=== PATIENT | male | born 2000 | race Caucasian/White ===

== ENCOUNTER 2024-09-09 11:34 | Emergency (ER) | payer OTHER ==
[~2024-09-09] VITALS: Ht 190.5 cm; Wt 106.0 kg
[2024-09-09] MEDS ORDERED: CEFAZOLIN SODIUM 1 GM/10 ML SYR IV ONE (12:15)
[2024-09-09] MEDS ORDERED: OXYCODONE/APAP 10/325 TAB PO ONE (12:15)
[2024-09-09] MEDS ORDERED: fentaNYL citrate 100 MCG/2 ML VIAL IV PRN (12:15)
[2024-09-09] MEDS ORDERED: CEFAZOLIN SODIUM 2 GM/20 ML SYR IV ONE (12:30)
[2024-09-09] MEDS ORDERED: PERCOCET 5-3251 EACH PO (15:08)
[2024-09-09] MEDS ORDERED: ONDANSETRON ODT8 MG PO (15:08)
[2024-09-09] MEDS ORDERED: CEPHALEXIN500 M1 PO (15:08)
[2024-09-09 15:19] VITALS: BP 143/75
== END 2024-09-09 15:19 | disposition home or self-care (01) ==
LOC: ED 11:34
DX: S92.424A Nondisplaced fracture of distal phalanx of right great toe, initial encounter for closed fracture (principal); S91.111A Laceration without foreign body of right great toe without damage to nail, initial encounter; W31.89XA Contact with other specified machinery, initial encounter
CPT/HCPCS: 36415; 73630; 80053; 82803; 83605; 84484; 85025; 85610; 96374; 96375; 99283-25; J0690; J3010